=== PATIENT | male | born 1970 | race Caucasian/White ===

== ENCOUNTER 2020-05-18 00:41 | Emergency (ER) | payer SELFPAY ==
[2020-05-18] VITALS (8 sets, daily range): BP systolic 108–136; BP diastolic 68–92; PULSE 70–77; RESP 16–22; TEMP 36.5–36.6; O2SAT 95–97
--- NOTE | ~2020-05-18 | XR_ITS ---
EXAMINATION: XR chest 1V portable INDICATION: Shortness of breath, history of interstitial lung disease TECHNIQUE: Portable AP chest at 0127 hours COMPARISON: 04/28/2019 FINDINGS: There is stable cardiomegaly. Interstitial and airspace opacities are present in the mid an d lower lung zones. Small pleural effusions are present. There is no pneumothorax. IMPRESSION: 1. Stable cardiomegaly. 2. Chronic interstitial and airspace opacities of the lung bases, likely reflecting chronic interstit ial lung disease. 3. Small pleural effusions. Reviewed, dictated and finalized at location A. NT ACQUISITION DIRECTOR IMPRESSION: 1. Stable cardiomegaly. 2. Chronic interstitial and airspace opacities of the lung bases, likely reflec ting chronic interstitial lung disease. 3. Small pleural effusions.
--- NOTE | 2020-05-18 00:57 | ECG_ITS ---
Measurements Intervals [place] Rate: 75 P: 23 [place]: 189 QRS: 140 QRSD: 102 T: -7 QT: 348 QTc: 390 Interpretive Statements SINUS RHYTHM RIGHT AXIS DEVIATION DELAYED PRECORDIAL R/S TRANSITION INFERIOR INFARCT, AGE INDETERMINATE BORDERLINE T WAVE ABNORMALITY- ANTERIOR LEADS ABNORMAL ECG Electronically Signed On 05-18-2020 7:07:49 [facility] by Cecilio Rodriguez D.O.
[2020-05-18 01:18] LABS: Base Excess ABG -0.4 mmol/L (0-2); HCO3 ABG 24.3 mmol/L (23-29); Oxygen Content ABG 20.7 %vol (16.0-22.0); Oxygen Saturation ABG 93.3 % (95-97); Oxyhemoglobin 92.7 % (94-100); PCO2 ABG 39.9 mmHg (35-45); PO2 ABG 64.1 mmHg (80-90); Total Hemoglobin 15.9 g/dL
[2020-05-18 01:27] LABS: Basophils Absolute Auto 0.05 K/mm3 (0.00-0.10); Basophils Percent Auto 0.5 % (0.0-1.0); Eosinophils Absolute Auto 0.16 K/mm3 (0.02-0.50); Eosinophils Percent Auto 1.7 % (1.0-6.0); Hematocrit 51.3 % (40.0-54.0); Hemoglobin 16.2 g/dL (14.0-18.0); Immature Granulocyte Percent A 1.1 % (0.0-0.0); Lymphocytes Percent Auto 21.2 % (18.0-42.0); Mean Corpuscular HGB Conc 31.6 g/dL (32.0-36.0); Mean Corpuscular Hemoglobin 27.5 pg (27.0-31.0); Mean Corpuscular Volume 86.9 fL (78.0-102.0); Mean Platelet Volume 11.9 fl (8.7-11.0); Monocytes Percent Auto 9.5 % (2.0-11.0); Neutrophils Absolute Auto 6.2 K/mm3 (1.7-7.2); Platelet Count Result 254 K/mm3 (150-420); Red Cell Distribution Width 13.3 % (11.6-14.4); White Blood Count 9.5 K/mm3 (4.8-10.8)
[2020-05-18 01:30] LABS: Device NASAL CANNULA; Modified Allen's Test Pass; Site Drawn LEFT RADIAL
[2020-05-18 01:39] LABS: D Dimer 0.19 mg/L (0.19-0.50); INR 1.1; Partial Thromboplastin Time 28.7 SEC (22.3-31.6); Prothrombin Time 10.9 Seconds (9.64-11.0)
[2020-05-18 01:41] LABS: Alanine Aminotransferase 30 U/L (16-63); Alkaline Phosphatase 80 U/L (46-116); Anion Gap 10 mmol/L (8-16); Aspartate Amino Transferase 22 U/L (15-37); Bilirubin,Total 0.3 mg/dL (0.00-1.00); Blood Urea Nitrogen 11 mg/dL (7-18); Carbon Dioxide 28 mmol/L (21-32); Chloride 104 mmol/L (98-108); Estimated Glomerular Filt Rate > 60; Glucose 110 mg/dL (70-99); Osmolality Calculated 294 mOsm/kg (285-295); Potassium 3.5 mmol/L (3.5-5.1); Sodium 142 mmol/L (136-145); Total Protein 7.9 g/dL (6.4-8.2)
[2020-05-18 01:42] LABS: Troponin I < 0.02 ng/mL (0.00-0.056)
[2020-05-18 01:54] LABS: BNP 78.8 pg/mL (0-100)
[2020-05-18 03:30] LABS: Influenza Control Valid (Valid)
--- NOTE | 2020-05-18 03:50 | ED.URI ---
HPI - URI/Sore Throat General Chief Complaint: Upper Respiratory Infection Stated Complaint: 50 YO male w/ known h/o chronic instertitial pneumonia interstitial subtype (CIPAS) sent into ED by Pulmonology Fellow (Dr Carrington - [facility]) after patient reported a 1 week h/o recurrent bouts of fever, chills, Loss of appetite, Loss of sensation of taste, and worsening SOB. Patient is O2 dep on 4-5L of O2 via NC and on chronic prednisone and mycophenolate for CIPAS. Related Data Home Medications Medication Instructions Recorded Confirmed escitalopram oxalate [Lexapro] 20 mg PO DAILY 05/18/20 05/18/20 mycophenolate mofetil [CellCept] See Rx Instructions .ROUTE .COMPLEX 05/18/20 05/18/20 pantoprazole [Protonix] See Rx Instructions .ROUTE .COMPLEX 05/18/20 05/18/20 prednisone See Rx Instructions .ROUTE .COMPLEX 05/18/20 05/18/20 sulfamethoxazole-trimethoprim See Rx Instructions .ROUTE .COMPLEX 05/18/20 05/18/20 [Bactrim DS] Allergies Allergy/AdvReac Type Severity Reaction Status Date / Time No Known Allergies Allergy Verified 05/18/20 00:53 Review of Systems Constitutional: Constitutional: Reports chills, Denies fatigue, Reports fever(s) and Denies weakness Eyes: Eyes: Reports no additional eye complaints ENT: Reports system reviewed and no additional complaints, except as documented Cardiovascular: Cardiovascular: Reports no additional cardiovascular complaints Respiratory: Respiratory: Denies chest congestion, Reports dyspnea and Denies wheezing Gastrointestinal: Gastrointestinal: Reports no additional gastrointestinal complaints Genitourinary: Genitourinary: Reports no additional male genitourinary complaints Musculoskeletal: Musculoskeletal: Reports no additional musculoskeletal complaints Neurologic: Reports system reviewed and no additional complaints, except as documented and Reports weakness Psychiatric: Psychiatric: Reports no additional psychiatric complaints Endocrine: Endocrine: Reports no additional endocrine complaints Hematologic/Lymphatic: Hematologic/Lymphatic: Reports no additional hematologic/lymphatic complaints Allergic/Immunologic: Allergic/Immunologic: Reports no additional allergic/immunologic complaints [facility] Past Medical History Medical History Chronic interstitial pneumonia Depression GERD (gastroesophageal reflux disease) Steroid dependence Supplemental oxygen dependent Social History Social History Gender identity (if verbalized by the patient): Male Exam Const: General: no acute distress and alert Orientation/consciousness: patient oriented x3 HENMT: Head: normal to inspection Eyes: Conjunctivae: conjunctivae normal Pupils: Equal, round and reactive pupils present Neck: Neck: normal visual inspection and no lymphadenopathy Chest: Chest palpation & inspection: normal inspection of the chest Resp: Effort & Inspection: normal respiratory effort Cardio: Rate: regular rate Rhythm: regular rhythm GI: Inspection: non-distended GI Palp: Yes Soft to palpation, No Tenderness to palpation present (GI) and No Guarding due to palpation present (GI) Percussion: Yes normal to percussion : Testes: Testes normal Back/Spine/Pelvis: Back: no CVA tenderness Skin: General skin exam: normal color Neuro: General: patient oriented x3, moves all extremities, no meningeal signs, no focal motor deficits and CN's II-XI intact bilaterally Cranial nerves: Yes Nystagmus not present Speech: normal speech Gait exam (Neuro): Normal gait present Extrem: General: normal to inspection and no pedal edema Psych: Appearance: grossly normal Mental Status: mental status grossly normal Affect: normal affect and Anxious affect present Attitude: cooperative Thought content: Yes Normal thought content present Course Course Emergency Course: Called [facility] to inform them of our COVID-19 pend
[2020-05-18] MEDS: methylPREDNISolone SOD SUCC 125 MG VIAL IV PUSH (04:05)
--- NOTE | 2020-05-18 04:06 | PC.NURSE ---
arrived at 0041, no resp distress noted, states he is SOB & knows he has COVID, but never tested. 0115 resp distress to ER, patient checked on frequently by security while nurse in code. 0330 soda & snacks given. SPO2 96 on 4lm (patients normal)
[2020-05-18 04:37] LABS: CRP < 0.5 mg/dL (0.0-0.9); Ferritin 72 ng/mL (26-388)
--- NOTE | 2020-05-18 06:29 | PC.NURSE ---
0330 consulted with [facility], no beds due to no COVID results ([facility] COVID send out) 0630 Checked with [facility] on bedstatus, waiting for Dr Garcia to come in to find more about type bed for patient with no COVID test & Lung disease
--- NOTE | 2020-05-18 08:06 | PC.NURSE ---
[facility] has a bed, will be calling with room number & report
--- NOTE | 2020-05-18 08:45 | PC.NURSE ---
no beds at [facility], ER hold to room 210--report to Rn on floor
--- NOTE | 2020-05-18 09:05 | PC.NURSE ---
Patient up to room 210 from ER, transported pr wheelchair. Tolerated well. 02@4-5l per nc. Pt. shows no signs of SOB on arrival to floor. Vital signs stable. Pt. provided with call light and oriented to room, call light, bathroom and bed. Pt. stated understanding. Provided with pepsi per request. Denies further needs. Sitting up at side of bed. Pt. ambulated independently, gait is steady.
--- NOTE | 2020-05-18 12:15 | PC.NURSE ---
patient ate 100% of lunch sitting up at side of bed. Denies any needs. No SOB noted at present.
--- NOTE | 2020-05-18 12:30 | PC.NURSE ---
Report called to Joyce GONZALEZ at [facility], Bed #0917. Call number for report, .
--- NOTE | 2020-05-18 13:00 | PC.NURSE ---
Addendum entered by Oneida Kathleen RN 05/18/20 13:16: IV site to right forearm left in place for transfer to [place]. Original Note: [facility] here to transport patient to [place] room [address] on [facility]. Patient aware of transfer. Paperwork signed and given to EMS with report. Patient left floor via stretcher accompanied by EMS. Patient denies any questions at discharge. All belongings sent with patient.
[2020-05-20 00:53] LABS: SARS-CoV-2 RNA PCR Negative
== END 2020-05-18 13:00 | disposition short-term general hospital (02) ==
LOC: CHSED 00:47 → CHS2ND 08:58
PROVIDERS: Emergency Provider Family Medicine
DX: J84.111 Idiopathic interstitial pneumonia, not otherwise specified (principal); Z20.828 Contact with and (suspected) exposure to other viral communicable diseases
CPT/HCPCS: 36415; 36600; 71045; 80053; 82728; 82805; 83880; 84484; 85025; 85380; 85610; 85730; 86140; 87040; 87081; 87635; 87804; 87880; 93005; 96374; 99285; C9803; J2930; U0003

== ENCOUNTER 2022-01-18 23:19 | Emergency (ER) | payer MEDICARE, SELFPAY ==
--- NOTE | ~2022-01-18 | CT_ITS ---
EXAMINATION:CT diagnostic chest wo con DATE: 01/19/2022 01:12 INDICATION: Shortness of breath. TECHNIQUE: Computed tomography (CT) of the chest was performed without intravenous contrast. Automate d exposure control and iterative reconstruction technique were employed. The dose-length product (DLP ) was 271.11 mGy-cm. COMPARISON: Chest single view 05/18/2020 FINDINGS: The lung volumes are small. There are widespread groundglass and reticular opacities in the lungs with a lower lung predominance and architectural distortion. There is air trapping in the uppe r lobes and volume loss in the lower lobes and right middle lobe. There are changes of wedge resectio n in lingula. No pleural effusion. Cardiomegaly is noted. There are coronary artery calcifications. N o pericardial effusion. The central pulmonary arteries are enlarged, consistent with pulmonary arteri al hypertension. There is mild mediastinal lymphadenopathy, likely reactive. Material in the [place] may be sludge or stones. There is mild thoracic spondylosis. There is a chronic compression fract ure of T8. IMPRESSION: 1. Chronic interstitial lung disease, which may be chronic hypersensitivity pneumonitis, nonspecific interstitial pneumonia (NSIP), or usual interstitial pneumonia (UIP). Given that there is no comparis on CT, superimposed acute lung disease cannot be excluded. 2. Cardiomegaly. Reviewed, dictated and finalized at location A. IMPRESSION: 1. Chronic interstitial lung disease, which may be chronic hypersensitivity pne umonitis, nonspecific interstitial pneumonia (NSIP), or usual interstitial pneu monia (UIP). Given that there is no comparison CT, superimposed acute lung dise ase cannot be excluded. 2. Cardiomegaly.
[2022-01-18 23:25] VITALS: BP 102/80; PULSE 94; RESP 20; TEMP 36.8; O2SAT 89
--- NOTE | 2022-01-18 23:27 | ECG_ITS ---
Measurements Intervals [place] Rate: 89 P: -8 [place]: 175 QRS: 153 QRSD: 102 T: -30 QT: 341 QTc: 417 Interpretive Statements SINUS RHYTHM RIGHT AXIS DEVIATION INCOMPLETE RIGHT BUNDLE BRANCH BLOCK POOR R WAVE PROGRESSION, ANTERIOR LEADS INFERIOR INFARCT, AGE INDETERMINATE BORDERLINE ST-T WAVE ABNORMALITY- ANTERIOR LEADS BASELINE ARTIFACT- I, III, V4-V6 ABNORMAL ECG Electronically Signed On 01-19-2022 6:12:38 CDT by Cecilio Rodriguez D.O.
[2022-01-18 23:45] VITALS: O2SAT 89
[2022-01-18 23:47] VITALS: O2SAT 93
[2022-01-19] VITALS (17 sets, daily range): BP systolic 93–120; BP diastolic 57–86; PULSE 76–95; RESP 17–27; TEMP 36.2; O2SAT 89–97
--- NOTE | 2022-01-19 00:36 | PC.NURSE ---
pt want to talk to the ER doctor before he agree to receive IV fluids. md denny updated
[2022-01-19] MEDS: ALBUTEROL SULFATE (*SP) INHALER 2 PUFF INHALATION (00:38)
[2022-01-19] MEDS: UMECLIDINIUM BROMIDE 62.5 MCG ELLIPTA 1 PUFF INHALATION (00:38)
[2022-01-19 00:41] LABS: Base Excess ABG 2.7 mmol/L (0-2); HCO3 ABG 27.2 mmol/L (23-29); Oxygen Content ABG 19.3 %vol (16.0-22.0); Oxygen Saturation ABG 92.5 % (95-97); Oxyhemoglobin 91.6 % (94-100); PCO2 ABG 41.2 mmHg (35-45); PO2 ABG 65.5 mmHg (80-90); pH ABG 7.44 (7.35-7.45)
[2022-01-19 00:45] LABS: Basophils Absolute Auto 0.04 K/mm3 (0.00-0.10); Basophils Percent Auto 0.5 % (0.0-1.0); Eosinophils Absolute Auto 0.21 K/mm3 (0.02-0.50); Eosinophils Percent Auto 2.5 % (1.0-6.0); Hematocrit 46.5 % (40.0-54.0); Hemoglobin 14.9 g/dL (14.0-18.0); Immature Granulocyte Absolute 0.02 K/mm3 (0.00-0.00); Immature Granulocyte Percent A 0.2 % (0.0-0.0); Lymphocytes Absolute Auto 2.12 K/mm3 (1.10-4.50); Lymphocytes Percent Auto 25.2 % (18.0-42.0); Mean Corpuscular Hemoglobin 27.4 pg (27.0-31.0); Mean Corpuscular Volume 85.5 fL (78.0-102.0); Mean Platelet Volume 11.8 fl (8.7-11.0); Monocytes Absolute Auto 0.88 K/mm3 (0.10-0.90); Monocytes Percent Auto 10.5 % (2.0-11.0); Neutrophils Absolute Auto 5.1 K/mm3 (1.7-7.2); Neutrophils Percent Auto 61.1 % (50.0-70.0); Platelet Count Result 221 K/mm3 (150-420); Red Blood Count 5.44 M/mm3 (4.70-6.10); Red Cell Distribution Width 13.7 % (11.6-14.4); White Blood Count 8.4 K/mm3 (4.8-10.8)
[2022-01-19 00:53] LABS: Device NASAL CANNULA; Modified Allen's Test Pass; Site Drawn LEFT RADIAL
[2022-01-19 00:59] LABS: Alanine Aminotransferase 16 U/L (16-63); Albumin Level 3.4 g/dL (3.4-5.0); Alkaline Phosphatase 89 U/L (46-116); Anion Gap 4 mmol/L (8-16); Aspartate Amino Transferase 19 U/L (15-37); Bilirubin,Total 0.4 mg/dL (0.00-1.00); Blood Urea Nitrogen 9 mg/dL (7-18); Calcium 8.4 mg/dL (8.5-10.1); Carbon Dioxide 30 mmol/L (21-32); Chloride 106 mmol/L (98-108); Estimated CRCL calculation 88 ml/min; Estimated Glomerular Filt Rate > 60; Glucose 86 mg/dL (70-99); Osmolality Calculated 287 mOsm/kg (285-295); Potassium 3.8 mmol/L (3.5-5.1); Sodium 140 mmol/L (136-145); Total Protein 7.6 g/dL (6.4-8.2); Troponin I 26.8 ng/L (0.00-60.4)
[2022-01-19] MEDS: methylPREDNISolone SOD SUCC 125 MG VIAL IV PUSH (00:59)
[2022-01-19] MEDS: MORPHINE SULFATE (*CRX) 2 MG/ML INJ IV PUSH (00:59)
[2022-01-19] MEDS: ONDANSETRON INJ 4 MG/2 ML VIAL IV PUSH (00:59)
[2022-01-19 01:01] LABS: Lactic Acid Reflex 1.4 mmol/L (0.4-2.0)
[2022-01-19 01:48] LABS: Influenza A QL RT-PCR Negative (Negative); Influenza B QL RT-PCR Negative (Negative); SARS-CoV-2 RNA PCR Negative (Negative)
--- NOTE | 2022-01-19 01:57 | PC.NURSE ---
discussed patient's blood pressure with MD Bautista. pt refusing IV fluids at this time. no new orders
[2022-01-19 02:23] LABS: Add Urine Microscopic? YES; Appearance Urine Clear (Clear); Bilirubin Urine Negative (Negative); Blood Urine Negative (Negative); Color Urine Yellow (Yellow); Glucose Urine UA Negative (Negative); Ketones Urine Trace (Negative); Leukocyte Esterase Ur Negative (Negative); Nitrate Urine Negative (Negative); Protein Urine Negative (Negative); Specific Grav Ur 1.025 (1.010-1.020); Urobilinogen Urine 0.2 mg/dL (0.2-1.0)
[2022-01-19 02:29] LABS: RBC Urine None seen /hpf (0-2); Squamous Epithelial Cell Urine None seen /hpf (Few); WBC Urine None seen /hpf (0-3)
--- NOTE | 2022-01-19 02:40 | ED.SOB ---
HPI - SOB/Dyspnea General Chief Complaint: Shortness of Breath/Dyspnea Stated Complaint: sob and pain Time Seen by Provider: 01/18/22 23:23 Source: patient and RN notes reviewed Mode of arrival: ambulatory Limitations: no limitations History of Present Illness MD elicited complaint: shortness of breath Pertinent past history: other (interstitial lung disease and pulmonary hypertension.) Onset (ago): week(s) (1) Context: occurred during exertion Timing: intermittent and other (SOB and mild right upper chest and back were worse this late PM) Severity: mild Exacerbating factors: exertion Relieving factors: oxygen, bronchodilators and medication Known history of: other (interstitial lung disease and pulmonary hypertension) Associated symptoms: chest pain Treatment prior to arrival: oxygen Related Data Home oxygen amount: 4 liters Home Medications Medication Instructions Recorded Confirmed escitalopram oxalate 20 mg tablet 20 mg PO DAILY 05/18/20 01/19/22 (Lexapro) mycophenolate mofetil 500 mg See Rx Instructions .Route .COMPLEX 05/18/20 01/19/22 tablet (CellCept) pantoprazole 40 mg tablet,delayed 40 mg PO DAILY 05/18/20 01/19/22 release (Protonix) prednisone 10 mg tablet 5 mg PO DAILY 05/18/20 01/19/22 tadalafil (pulm. hypertension) 20 20 mg PO DAILY 01/19/22 01/19/22 mg tablet (pulmonary hypertension) Allergies Allergy/AdvReac Type Severity Reaction Status Date / Time No Known Allergies Allergy Verified 01/19/22 00:38 Review of Systems Review of Systems: All systems reviewed & are unremarkable except as noted in HPI and below Constitutional: Constitutional: Reports no additional constitutional complaints Eyes: Eyes: Reports no additional eye complaints ENT: Reports system reviewed and no additional complaints, except as documented Cardiovascular: Cardiovascular: Reports no additional cardiovascular complaints Respiratory: Respiratory: Reports no additional respiratory complaints Gastrointestinal: Gastrointestinal: Reports no additional gastrointestinal complaints Musculoskeletal: Musculoskeletal: Reports no additional musculoskeletal complaints Integumentary/Breasts: Skin/Breast: Reports system reviewed and no additional complaints, except as docu Neurologic: Reports system reviewed and no additional complaints, except as documented Psychiatric: Psychiatric: Reports no additional psychiatric complaints Endocrine: Endocrine: Reports no additional endocrine complaints Hematologic/Lymphatic: Hematologic/Lymphatic: Reports no additional hematologic/lymphatic complaints Allergic/Immunologic: Allergic/Immunologic: Reports no additional allergic/immunologic complaints PMFSH Past Medical History Medical History Chronic interstitial pneumonia Depression GERD (gastroesophageal reflux disease) Steroid dependence Supplemental oxygen dependent Social History Social History Gender identity (if verbalized by the patient): Male Exam Const: General: healthy appearing and no acute distress Nutritional Appearance: well nourished Orientation/consciousness: patient oriented x3 Limitations: no limitations HENMT: Head: normal to inspection Ears: external ears normal, TM's normal bilaterally and EAC's normal General nose exam: Normal external nose present and Normal nares present Face and sinus: normal facial exam and sinuses nontender Mouth: Yes Normal oral and palatal mucosa present and Yes moist mucous membranes Teeth and gingiva: dentition normal Throat: posterior oropharynx normal Eyes: Conjunctivae: conjunctivae normal Pupils: Equal, round and reactive pupils present EOM: EOMs intact bilaterally Neck: Neck: normal visual inspection, no lymphadenopathy and no meningeal signs Chest: Chest palpation & inspection: normal inspection of the chest Resp: Effort & Inspection: normal re
--- NOTE | 2022-01-19 02:56 | PC.NURSE ---
pt contacted his pulmonary doctor who is going to call [phone]. pt requesting to speak with his pulmonary doctor prior to having his pulmonary doctor speak with MD Bautista. Md Bautista updated with this information.
--- NOTE | 2022-01-19 03:23 | PC.NURSE ---
pt standing at bedside leaning on bed rail talking to this staff member with oxygenation of 88% to 92% on 7L High flow nasal cannula. this staff member did not observer signs or symptoms of respiratory distress while in patient room. this staff member informed pt that he has been discharged. Pt stated, He discharged me without speaking to my doctor? this staff member replied, no one has called the nurse station. pt stated, I called again and gave them the main hospital number [phone]. pt stated, I am not discharged until I talk to my doctor. I want to go to [facility] and they are the ones who will accept me. There is something going on with me because it took over 40 minutes for my oxygen to get to 92 on 14 liters.
--- NOTE | 2022-01-19 03:59 | PC.NURSE ---
pt requested that call his on-call pulmonary doctor at [facility] - [phone]. Grinding Wheel Inspector informed this staff member that the doctor has been paged and that they are waiting for the doctor to call back.
--- NOTE | 2022-01-19 04:15 | PC.NURSE ---
pt in room attempting to obtain private transportation home. pt is on high flow oxygen.
--- NOTE | 2022-01-19 04:43 | PC.NURSE ---
pt in ER waiting room waiting for private transportation home.
== END 2022-01-19 04:43 | disposition home or self-care (01) ==
PROVIDERS: Emergency Provider Emergency Medicine; PCP Internal Medicine Pulmonary Disease
DX: J84.9 Interstitial pulmonary disease, unspecified (principal); Z99.81 Dependence on supplemental oxygen; I27.20 Pulmonary hypertension, unspecified; Z20.822 Contact with and (suspected) exposure to COVID-19; K21.9 Gastro-esophageal reflux disease without esophagitis
CPT/HCPCS: 36415; 36600; 71250; 80053; 81001; 82805; 83605; 84484; 85025; 87081; 87502; 87880; 93005; 94640; 96374; 96375; 99284; A9270; C9803; J2270; J2405; J2930; U0003; U0005